=== PATIENT | female | born 1965 | race Caucasian/White ===

== ENCOUNTER 2023-09-03 09:36 | Inpatient (IN) | payer MEDICARE, MEDICAID ==
[~2023-09-03] VITALS: Ht 160 cm; Wt 50.0 kg
[2023-09-03] MEDS ORDERED: ACETAMINOPHEN TAB 650MG DOSE (2X325MG) PO PRN (10:05)
[2023-09-03 14:00] VITALS: BP 170/80; TEMP 96.6; O2SAT 97
[2023-09-03] MEDS ORDERED: ZOSY1SOL6 IV (15:38)
[2023-09-03 16:00] VITALS: BP 184/82; TEMP 96.5; O2SAT 98
[2023-09-03] MEDS ORDERED: TOPI-21 PO (16:14)
[2023-09-03] MEDS ORDERED: FAMO40TA3 PO (16:14)
[2023-09-03] MEDS ORDERED: DIVA500T9 PO (16:14)
[2023-09-03 16:32] LABS: BASO % 0.3 % (0.0-1.0); EOS # 0.2 10^3/uL (0.0-0.5); EOS % 2.5 % (0.0-3.0); HEMATOCRIT 30.8 % (36.0-47.0); HEMOGLOBIN 9.8 g/dl (12.0-15.5); LYMPH # 1.6 10^3/uL (1.5-5.0); LYMPH % 26.4 % (24.0-44.0); MEAN CORPUSCULAR HGB CONC 31.8 g/dl (32.0-36.5); MEAN CORPUSCULAR VOLUME 100.7 fl (80.0-96.0); MONO # 0.4 10^3/uL (0.0-0.8); NEUTROPHILS # 3.8 10^3/uL (1.5-8.5); NEUTROPHILS % 62.3 % (36.0-66.0); PLATELET COUNT, AUTOMATED 117 10^3/uL (150-450); RED BLOOD COUNT 3.06 10^6/uL (4.00-5.40)
[2023-09-03 16:37] LABS: ERYTHROCYTE SEDIMENTATION RATE 37 mm/hr (0-30)
[2023-09-03] MEDS ORDERED: amLODIPine 5 MG TAB PO ONE (16:55)
[2023-09-03] MEDS ORDERED: TOPI100T9 PO (16:57)
[2023-09-03] MEDS ORDERED: THIO25TA PO (16:57)
[2023-09-03] MEDS ORDERED: RISP-7 PO ×2 (16:57)
[2023-09-03 17:01] LABS: COMPLEMENT C3 111.8 MG/DL (90.0-170.0); COMPLEMENT C4 27.5 MG/DL (12-36); IMMUNOGLOBULIN A 183.1 MG/DL (40-350)
[2023-09-03 17:02] LABS: IMMUNOGLOBULIN G 1314 MG/DL (650-1600)
[2023-09-03 17:03] LABS: CPK CREATINE PHOSPHOKINASE < 15 U/L (34-145); IRON (FE) 207 UG/DL (50-170); LDH LACTATE DEHYDROGENASE 152 U/L (120-246)
[2023-09-03 17:04] LABS: ALBUMIN 2.3 G/DL (3.2-5.2); ALKALINE PHOSPHATASE 79 U/L (46-116); ALT/SGPT 9 U/L (7.0-40); AST/SGOT 12 U/L (<34); BILIRUBIN,TOTAL 0.4 MG/DL (0.3-1.2); BLOOD UREA NITROGEN 22 MG/DL (9-23); CALCIUM LEVEL 12.3 MG/DL (8.5-10.1); CARBON DIOXIDE LEVEL 23 MMOL/L (20-31); CHLORIDE LEVEL 116 MMOL/L (98-107); CK-MB VALUE MASS < 1.0 NG/ML (<3.6); CREATININE FOR GFR 1.82 MG/DL (0.55-1.30); GLOMERULAR FILTRATION RATE 30.4 (>51); GLUCOSE, FASTING 68 MG/DL (60-100); PERCENT SATURATION 77.2 % (13.2-45.0); POTASSIUM SERUM 4.4 MMOL/L (3.5-5.1); SODIUM LEVEL 144 MMOL/L (136-145); TOTAL IRON BINDING CAPACITY 268 UG/DL (250-425); TOTAL PROTEIN 6.1 G/DL (5.7-8.2)
[2023-09-03 17:05] LABS: FERRITIN 222.6 NG/ML (7.3-270.7)
[2023-09-03] MEDS ORDERED: B COCAP4 PO (17:05)
[2023-09-03] MEDS ORDERED: CETACRE3 TOP (17:05)
[2023-09-03] MEDS ORDERED: METH85CR11 TOP (17:05)
[2023-09-03 17:08] LABS: INR 1.06; PROTHROMBIN TIME 13.5 SECONDS (12.5-14.5)
[2023-09-03] MEDS ORDERED: CALTTAB2 PO (17:09)
[2023-09-03] MEDS ORDERED: SYST1SOL OU (17:09)
[2023-09-03] MEDS ORDERED: BIMA0.036 OU (17:09)
[2023-09-03] MEDS ORDERED: ACET-897 PO (17:09)
[2023-09-03 17:10] LABS: MONO SCRN NEGATIVE (NEGATIVE)
[2023-09-03] MEDS ORDERED: SENN-23 PO (17:11)
[2023-09-03] MEDS ORDERED: MIRA3350 PO (17:11)
[2023-09-03] MEDS ORDERED: OXYB5TAB11 PO (17:11)
[2023-09-03 17:12] LABS: D-DIMER QUANT 0.46 ug/mL (<0.5)
[2023-09-03] MEDS ORDERED: THIO50TA PO (17:14)
[2023-09-03 17:15] LABS: PROCALCITONIN 0.06 ng/ml
[2023-09-03] MEDS ORDERED: HOME MED LIST COMPLETE! XX SCH (17:20)
[2023-09-03 17:35] LABS: HIV 1&2 SCREEN NEGATIVE (NEGATIVE)
[2023-09-03] MEDS ORDERED: PILL CUTTER 1 EACH XX PRN (17:35)
[2023-09-03 17:42] VITALS: BP 188/82; TEMP 96.7; O2SAT 98
[2023-09-03] MEDS: PIPERACILLIN/TAZOBACTAM SOD 3.375 GM in D5W MINI-BAG PLUS 50 ML IV SCH ×2 (18:09→23:00)
[2023-09-03] MEDS ORDERED: **hydrALAZINE** 10 MG TAB PO ONE (19:00)
[2023-09-03 19:25] VITALS: BP 176/80; TEMP 96.7; O2SAT 99
[2023-09-03] MEDS: DIVALPROEX 500MG *ER* TAB PO SCH (20:32)
[2023-09-03 20:33] VITALS: BP_DIAS 80
[2023-09-03] MEDS: TOPIRAMATE (TopAMAX) 25 MG TAB PO SCH (20:33)
[2023-09-03] MEDS: risperiDONE 0.5 MG TAB PO SCH (20:33)
[2023-09-03] MEDS: ISOSORBIDE DIN (ISORDIL) 10MG TAB PO SCH (20:33)
[2023-09-03] MEDS: TOPIRAMATE (TopAMAX) 100 MG TAB PO SCH (20:33)
[2023-09-03] MEDS: oxyBUTYnin 5 MG TAB PO SCH (20:33)
[2023-09-03] MEDS: ARTIFICIAL TEARS DROPS 15ML BTL (VISINE DRY RELIEF) OU SCH (20:34)
[2023-09-03] MEDS: ANALGESIC BALM CRM 3OZ TOP SCH (20:34)
[2023-09-03] MEDS ORDERED: FAMOTIDINE 20 MG TAB PO SCH (21:00)
[2023-09-03 23:39] VITALS: BP 138/65; TEMP 97.5; O2SAT 97
[2023-09-04] VITALS (7 sets, daily range): BP systolic 98–147; BP diastolic 56–96; TEMP 95.6–97.6; O2SAT 98–99
[2023-09-04 04:10] LABS: BASO % 0.5 % (0.0-1.0); EOS # 0.2 10^3/uL (0.0-0.5); EOS % 2.6 % (0.0-3.0); HEMATOCRIT 27.5 % (36.0-47.0); HEMOGLOBIN 8.7 g/dl (12.0-15.5); LYMPH # 1.8 10^3/uL (1.5-5.0); LYMPH % 28.7 % (24.0-44.0); MEAN CORPUSCULAR HEMOGLOBIN 31.6 pg (27.0-33.0); MEAN CORPUSCULAR HGB CONC 31.6 g/dl (32.0-36.5); MONO # 0.4 10^3/uL (0.0-0.8); MONO % 6.2 % (2.0-8.0); NEUTROPHILS # 3.7 10^3/uL (1.5-8.5); PLATELET COUNT, AUTOMATED 116 10^3/uL (150-450); RED BLOOD COUNT 2.75 10^6/uL (4.00-5.40); WHITE BLOOD COUNT 6.1 10^3/uL (4.0-10.0)
[2023-09-04 04:26] LABS: CALCIUM LEVEL 12.1 MG/DL (8.5-10.1); CREATININE FOR GFR 1.98 MG/DL (0.55-1.30); GLOMERULAR FILTRATION RATE 27.6 (>51); POTASSIUM SERUM 3.8 MMOL/L (3.5-5.1)
[2023-09-04] MEDS: risperiDONE 0.5 MG TAB PO SCH ×4 (06:03→21:22)
[2023-09-04] MEDS: PIPERACILLIN/TAZOBACTAM SOD 3.375 GM in D5W MINI-BAG PLUS 50 ML IV SCH ×4 (06:06→23:58)
[2023-09-04] MEDS ORDERED: NS 1,000 ML IV SCH (08:00)
[2023-09-04 08:34] LABS: PTH INTACT 7.9 PG/ML (18.5-88.0)
[2023-09-04 08:37] LABS: FREE T3 2.1 PG/ML (2.3-4.2); FREE T4 0.77 NG/DL (0.89-1.76)
[2023-09-04 08:38] LABS: THYROID STIMULATING HORMONE 3.601 uIU/ML (0.55-4.78); TOTAL 25(OH) VITAMIN D 65.3 NG/ML (20.0-100.0)
[2023-09-04] MEDS: oxyBUTYnin 5 MG TAB PO SCH ×2 (09:00→21:22)
[2023-09-04] MEDS: TOPIRAMATE (TopAMAX) 100 MG TAB PO SCH ×2 (09:00→21:22)
[2023-09-04] MEDS: DIVALPROEX 500MG *ER* TAB PO SCH ×2 (09:00→21:22)
[2023-09-04] MEDS: FAMOTIDINE 20 MG TAB PO SCH ×2 (09:00→21:22)
[2023-09-04] MEDS: SENOKOT S TAB PO SCH (09:00)
[2023-09-04] MEDS: VITAMIN B COMPLEX/VIT C CAP PO SCH (09:00)
[2023-09-04] MEDS: ISOSORBIDE DIN (ISORDIL) 10MG TAB PO SCH (09:00)
[2023-09-04] MEDS: TOPIRAMATE (TopAMAX) 25 MG TAB PO SCH ×2 (09:00→21:22)
[2023-09-04] MEDS: CALCITONIN SALMON (MIACALCIN) 400INTERNATIONAL UNITS/2ML VIAL SQ SCH ×2 (09:00→21:00)
[2023-09-04] MEDS: ARTIFICIAL TEARS DROPS 15ML BTL (VISINE DRY RELIEF) OU SCH ×4 (09:53→21:23)
[2023-09-04] MEDS: ANALGESIC BALM CRM 3OZ TOP SCH ×3 (09:53→21:23)
[2023-09-04 10:52] LABS: FOLATE 10.1 NG/ML (>5.4)
[2023-09-04] MEDS ORDERED: PAMIDRONATE DISODIUM FOR IV ONE (13:00)
[2023-09-04] MEDS ORDERED: D5W IV ONE (13:00)
[2023-09-04] MEDS: LEVOTHYROXINE 25MCG TABLET (0.025MG) PO SCH (14:49)
[2023-09-04] MEDS ORDERED: MIDODRINE 5 MG TAB PO ONE (15:00)
[2023-09-04] MEDS ORDERED: NS 1,000 ML IV ONE (15:00)
[2023-09-04] MEDS: LEVOTHYROXINE 100MCG (0.1MG) 5ML SDV PF (SOLUTION FORM) IV SCH (16:22)
[2023-09-04] MEDS ORDERED: **NOTE PATIENT COMMENT** MISC XX SCH (16:40)
[2023-09-04] MEDS: NS 1,000 ML IV SCH ×2 (17:37→23:46)
[2023-09-05 00:06] VITALS: BP 135/69; TEMP 97.4; O2SAT 98
[2023-09-05 00:27] VITALS: BP 136/63; TEMP 97.3; O2SAT 98
[2023-09-05] MEDS: risperiDONE 0.5 MG TAB PO SCH ×3 (05:40→21:07)
[2023-09-05] MEDS: PIPERACILLIN/TAZOBACTAM SOD 3.375 GM in D5W MINI-BAG PLUS 50 ML IV SCH ×4 (05:40→23:17)
[2023-09-05] MEDS: LEVOTHYROXINE 25MCG TABLET (0.025MG) PO SCH (05:40)
[2023-09-05 06:00] VITALS: BP 144/67; TEMP 97; O2SAT 99
[2023-09-05 06:37] LABS: BASO % 0.2 % (0.0-1.0); EOS # 0.1 10^3/uL (0.0-0.5); EOS % 2.3 % (0.0-3.0); HEMATOCRIT 25.7 % (36.0-47.0); HEMOGLOBIN 8.5 g/dl (12.0-15.5); LYMPH # 1.3 10^3/uL (1.5-5.0); MEAN CORPUSCULAR HEMOGLOBIN 32.1 pg (27.0-33.0); MEAN CORPUSCULAR HGB CONC 33.1 g/dl (32.0-36.5); MONO # 0.5 10^3/uL (0.0-0.8); MONO % 8.5 % (2.0-8.0); NEUTROPHILS % 66.2 % (36.0-66.0); PLATELET COUNT, AUTOMATED 100 10^3/uL (150-450); RED BLOOD COUNT 2.65 10^6/uL (4.00-5.40)
[2023-09-05 07:06] LABS: CALCIUM LEVEL 9.2 MG/DL (8.5-10.1); CREATININE FOR GFR 1.61 MG/DL (0.55-1.30); POTASSIUM SERUM 3.4 MMOL/L (3.5-5.1)
[2023-09-05] MEDS: VITAMIN B COMPLEX/VIT C CAP PO SCH (09:24)
[2023-09-05] MEDS: TOPIRAMATE (TopAMAX) 25 MG TAB PO SCH ×2 (09:25→21:07)
[2023-09-05] MEDS: SENOKOT S TAB PO SCH (09:25)
[2023-09-05] MEDS: FAMOTIDINE 20 MG TAB PO SCH ×2 (09:25→21:07)
[2023-09-05] MEDS: TOPIRAMATE (TopAMAX) 100 MG TAB PO SCH ×2 (09:25→21:07)
[2023-09-05] MEDS: DIVALPROEX 500MG *ER* TAB PO SCH ×2 (09:25→21:07)
[2023-09-05] MEDS: oxyBUTYnin 5 MG TAB PO SCH ×2 (09:25→21:07)
[2023-09-05] MEDS: ARTIFICIAL TEARS DROPS 15ML BTL (VISINE DRY RELIEF) OU SCH ×4 (09:26→21:06)
[2023-09-05] MEDS: KCL 20MEQ in NS 1000ML 1,000 ML IV SCH (09:26)
[2023-09-05] MEDS: LEVOTHYROXINE 100MCG (0.1MG) 5ML SDV PF (SOLUTION FORM) IV SCH (09:26)
[2023-09-05] MEDS: ANALGESIC BALM CRM 3OZ TOP SCH ×3 (09:27→21:06)
[2023-09-05 12:13] LABS: INR 1.04; PROTHROMBIN TIME 13.3 SECONDS (12.5-14.5)
[2023-09-05] MEDS: CALCITONIN SALMON (MIACALCIN) 400INTERNATIONAL UNITS/2ML VIAL SQ SCH ×2 (14:13→21:57)
[2023-09-05 14:30] VITALS: BP 157/73; TEMP 96.6; O2SAT 100
[2023-09-05 17:09] LABS: BODY FLUID CULTURE Not indicated. (.); LEGIONELLA ANTIGEN URINE Negative (Negative); ORGANISM ID Not indicated. (.); SPECIMEN SOURCE Urine (.); URINE STREP PNEUMONIAE ANTIGEN Negative (Negative)
[2023-09-05 20:00] VITALS: BP 145/75; TEMP 96.8; O2SAT 100
[2023-09-06] MEDS: KCL 20MEQ in NS 1000ML 1,000 ML IV SCH ×3 (01:07→17:19)
[2023-09-06] MEDS: LEVOTHYROXINE 25MCG TABLET (0.025MG) PO SCH (05:36)
[2023-09-06] MEDS: PIPERACILLIN/TAZOBACTAM SOD 3.375 GM in D5W MINI-BAG PLUS 50 ML IV SCH ×4 (05:36→23:44)
[2023-09-06] MEDS: risperiDONE 0.5 MG TAB PO SCH ×3 (05:36→20:18)
[2023-09-06 06:00] VITALS: BP 143/67; TEMP 97.2; O2SAT 99
[2023-09-06 06:04] LABS: BASO % 0.2 % (0.0-1.0); EOS # 0.1 10^3/uL (0.0-0.5); EOS % 1.6 % (0.0-3.0); HEMATOCRIT 23.6 % (36.0-47.0); HEMOGLOBIN 7.8 g/dl (12.0-15.5); LYMPH # 0.9 10^3/uL (1.5-5.0); LYMPH % 18.9 % (24.0-44.0); MEAN CORPUSCULAR HEMOGLOBIN 32.2 pg (27.0-33.0); MEAN CORPUSCULAR HGB CONC 33.1 g/dl (32.0-36.5); MEAN CORPUSCULAR VOLUME 97.5 fl (80.0-96.0); MONO # 0.3 10^3/uL (0.0-0.8); MONO % 6.1 % (2.0-8.0); NEUTROPHILS # 3.5 10^3/uL (1.5-8.5); NEUTROPHILS % 71.8 % (36.0-66.0); RED BLOOD COUNT 2.42 10^6/uL (4.00-5.40); WHITE BLOOD COUNT 4.9 10^3/uL (4.0-10.0)
[2023-09-06 06:22] LABS: PLATELET COUNT, AUTOMATED 76 10^3/uL (150-450)
[2023-09-06 06:27] LABS: CALCIUM LEVEL 8.9 MG/DL (8.5-10.1); CREATININE FOR GFR 1.4 MG/DL (0.55-1.30); GLOMERULAR FILTRATION RATE 41.1 (>51); POTASSIUM SERUM 3.7 MMOL/L (3.5-5.1)
[2023-09-06] MEDS ORDERED: DARBEPOETIN 100MCG/0.5ML *NON-DIALYSIS* SYRINGE SC SCH (09:00)
[2023-09-06] MEDS: ARTIFICIAL TEARS DROPS 15ML BTL (VISINE DRY RELIEF) OU SCH ×5 (09:00→20:19)
[2023-09-06] MEDS: FAMOTIDINE 20 MG TAB PO SCH ×2 (09:33→20:19)
[2023-09-06] MEDS: TOPIRAMATE (TopAMAX) 25 MG TAB PO SCH ×2 (09:33→20:21)
[2023-09-06] MEDS: oxyBUTYnin 5 MG TAB PO SCH ×2 (09:33→20:19)
[2023-09-06] MEDS: VITAMIN B COMPLEX/VIT C CAP PO SCH (09:33)
[2023-09-06] MEDS: DIVALPROEX 500MG *ER* TAB PO SCH ×2 (09:33→20:18)
[2023-09-06] MEDS: TOPIRAMATE (TopAMAX) 100 MG TAB PO SCH ×2 (09:34→20:19)
[2023-09-06] MEDS: ANALGESIC BALM CRM 3OZ TOP SCH ×3 (09:36→20:20)
[2023-09-06 10:00] VITALS: BP 140/72; TEMP 92.7; O2SAT 100
[2023-09-06 11:38] VITALS: BP 124/58; TEMP 93.2; O2SAT 99
[2023-09-06 16:00] VITALS: BP 113/58; TEMP 98.8; O2SAT 98
[2023-09-06 19:50] VITALS: BP 122/61; TEMP 98.4; O2SAT 99
[2023-09-06 23:38] VITALS: BP 142/63; TEMP 97.9; O2SAT 99
[2023-09-07 03:56] VITALS: BP 145/67; TEMP 98.2; O2SAT 99
[2023-09-07] MEDS: PIPERACILLIN/TAZOBACTAM SOD 3.375 GM in D5W MINI-BAG PLUS 50 ML IV SCH ×3 (06:06→17:54)
[2023-09-07] MEDS: LEVOTHYROXINE 100MCG (0.1MG) 5ML SDV PF (SOLUTION FORM) IV SCH (06:06)
[2023-09-07] MEDS: risperiDONE 0.5 MG TAB PO SCH ×3 (06:06→21:51)
[2023-09-07] MEDS: KCL 20MEQ in NS 1000ML 1,000 ML IV SCH (06:07)
[2023-09-07 06:10] LABS: BASO % 0.2 % (0.0-1.0); EOS % 0.7 % (0.0-3.0); HEMOGLOBIN 8.4 g/dl (12.0-15.5); LYMPH # 0.5 10^3/uL (1.5-5.0); LYMPH % 9.4 % (24.0-44.0); MEAN CORPUSCULAR HEMOGLOBIN 31.9 pg (27.0-33.0); MEAN CORPUSCULAR HGB CONC 32.3 g/dl (32.0-36.5); MEAN CORPUSCULAR VOLUME 98.9 fl (80.0-96.0); MONO # 0.4 10^3/uL (0.0-0.8); MONO % 6.3 % (2.0-8.0); NEUTROPHILS # 4.5 10^3/uL (1.5-8.5); NEUTROPHILS % 80.9 % (36.0-66.0); RED BLOOD COUNT 2.63 10^6/uL (4.00-5.40); WHITE BLOOD COUNT 5.6 10^3/uL (4.0-10.0)
[2023-09-07 06:11] LABS: PLATELET COUNT, AUTOMATED 83 10^3/uL (150-450)
[2023-09-07 06:28] LABS: CALCIUM LEVEL 8.5 MG/DL (8.5-10.1); CREATININE FOR GFR 1.48 MG/DL (0.55-1.30); GLOMERULAR FILTRATION RATE 38.6 (>51); POTASSIUM SERUM 3.5 MMOL/L (3.5-5.1)
[2023-09-07 07:46] VITALS: BP 139/65; TEMP 98.2; O2SAT 98
[2023-09-07] MEDS: DIVALPROEX 500MG *ER* TAB PO SCH ×2 (08:21→21:45)
[2023-09-07] MEDS: VITAMIN B COMPLEX/VIT C CAP PO SCH (08:21)
[2023-09-07] MEDS: TOPIRAMATE (TopAMAX) 25 MG TAB PO SCH ×2 (08:21→21:50)
[2023-09-07] MEDS: FAMOTIDINE 20 MG TAB PO SCH ×2 (08:22→21:50)
[2023-09-07] MEDS: ANALGESIC BALM CRM 3OZ TOP SCH ×3 (08:22→21:52)
[2023-09-07] MEDS: ARTIFICIAL TEARS DROPS 15ML BTL (VISINE DRY RELIEF) OU SCH ×4 (08:22→21:52)
[2023-09-07] MEDS: TOPIRAMATE (TopAMAX) 100 MG TAB PO SCH ×2 (08:22→21:51)
[2023-09-07] MEDS: oxyBUTYnin 5 MG TAB PO SCH ×2 (08:22→21:51)
[2023-09-07] MEDS: KCL 20MEQ IN 0.45NS 1000ML 1,000 ML IV SCH (12:56)
[2023-09-07 13:35] VITALS: BP 147/68; TEMP 98.2; O2SAT 99
[2023-09-07 16:00] VITALS: BP 139/65; TEMP 97.7; O2SAT 98
[2023-09-07 19:28] VITALS: BP 129/63; TEMP 97.6; O2SAT 100
[2023-09-07 23:17] VITALS: BP 147/66; TEMP 98.4; O2SAT 99
[2023-09-08] VITALS (10 sets, daily range): BP systolic 107–178; BP diastolic 58–79; TEMP 95.9–97.8; O2SAT 97–99
[2023-09-08] MEDS: KCL 20MEQ IN 0.45NS 1000ML 1,000 ML IV SCH ×2 (00:32→14:07)
[2023-09-08] MEDS: PIPERACILLIN/TAZOBACTAM SOD 3.375 GM in D5W MINI-BAG PLUS 50 ML IV SCH ×5 (00:32→23:39)
[2023-09-08 04:21] LABS: BASO % 0.2 % (0.0-1.0); EOS # 0.1 10^3/uL (0.0-0.5); EOS % 1.7 % (0.0-3.0); HEMATOCRIT 24.5 % (36.0-47.0); HEMOGLOBIN 7.7 g/dl (12.0-15.5); LYMPH % 21.8 % (24.0-44.0); MEAN CORPUSCULAR HEMOGLOBIN 31.4 pg (27.0-33.0); MEAN CORPUSCULAR HGB CONC 31.4 g/dl (32.0-36.5); MONO # 0.5 10^3/uL (0.0-0.8); MONO % 10.5 % (2.0-8.0); NEUTROPHILS # 2.9 10^3/uL (1.5-8.5); NEUTROPHILS % 63.6 % (36.0-66.0); RED BLOOD COUNT 2.45 10^6/uL (4.00-5.40); WHITE BLOOD COUNT 4.6 10^3/uL (4.0-10.0)
[2023-09-08 04:31] LABS: PLATELET COUNT, AUTOMATED 76 10^3/uL (150-450)
[2023-09-08 04:50] LABS: CALCIUM LEVEL 8.1 MG/DL (8.5-10.1); CREATININE FOR GFR 1.4 MG/DL (0.55-1.30); GLOMERULAR FILTRATION RATE 41.1 (>51); POTASSIUM SERUM 3.4 MMOL/L (3.5-5.1)
[2023-09-08] MEDS: LEVOTHYROXINE 100MCG (0.1MG) 5ML SDV PF (SOLUTION FORM) IV SCH (05:47)
[2023-09-08] MEDS: risperiDONE 0.5 MG TAB PO SCH ×3 (06:34→21:15)
[2023-09-08] MEDS: TOPIRAMATE (TopAMAX) 100 MG TAB PO SCH ×2 (09:21→21:15)
[2023-09-08] MEDS: TOPIRAMATE (TopAMAX) 25 MG TAB PO SCH ×2 (09:22→21:14)
[2023-09-08] MEDS: oxyBUTYnin 5 MG TAB PO SCH ×2 (09:22→21:14)
[2023-09-08] MEDS: DIVALPROEX 500MG *ER* TAB PO SCH ×2 (09:22→21:15)
[2023-09-08] MEDS: FAMOTIDINE 20 MG TAB PO SCH ×2 (09:22→21:15)
[2023-09-08] MEDS: VITAMIN B COMPLEX/VIT C CAP PO SCH (09:23)
[2023-09-08] MEDS: ANALGESIC BALM CRM 3OZ TOP SCH ×3 (09:24→21:22)
[2023-09-08] MEDS: ARTIFICIAL TEARS DROPS 15ML BTL (VISINE DRY RELIEF) OU SCH ×4 (09:24→21:22)
[2023-09-08 12:09] LABS: FREE LAMBDA LIGHT CHAINS SERUM 35.9 mg/L (5.7-26.3); KAPPA/LAMBDA RATIO SERUM 1.92 (0.26-1.65); VITAMIN D 1,25 DIHYDROXY 34.9 pg/mL (24.8-81.5)
[2023-09-08 12:48] LABS: FREE T4 0.96 NG/DL (0.89-1.76); THYROID STIMULATING HORMONE 2.787 uIU/ML (0.55-4.78)
[2023-09-08 12:50] LABS: FREE T3 2.1 PG/ML (2.3-4.2)
[2023-09-09 03:21] VITALS: BP 112/62; TEMP 97.4; O2SAT 98
[2023-09-09] MEDS: PIPERACILLIN/TAZOBACTAM SOD 3.375 GM in D5W MINI-BAG PLUS 50 ML IV SCH ×2 (05:39→11:31)
[2023-09-09] MEDS: KCL 20MEQ IN 0.45NS 1000ML 1,000 ML IV SCH (05:39)
[2023-09-09] MEDS: LEVOTHYROXINE 100MCG (0.1MG) 5ML SDV PF (SOLUTION FORM) IV SCH (05:39)
[2023-09-09 05:51] LABS: BASO % 0.2 % (0.0-1.0); EOS # 0.1 10^3/uL (0.0-0.5); EOS % 2.2 % (0.0-3.0); HEMATOCRIT 27.5 % (36.0-47.0); LYMPH # 1.2 10^3/uL (1.5-5.0); LYMPH % 29.7 % (24.0-44.0); MEAN CORPUSCULAR HEMOGLOBIN 31.5 pg (27.0-33.0); MEAN CORPUSCULAR HGB CONC 32.7 g/dl (32.0-36.5); MEAN CORPUSCULAR VOLUME 96.2 fl (80.0-96.0); MONO # 0.5 10^3/uL (0.0-0.8); MONO % 13.1 % (2.0-8.0); NEUTROPHILS # 2.2 10^3/uL (1.5-8.5); NEUTROPHILS % 53.3 % (36.0-66.0); RED BLOOD COUNT 2.86 10^6/uL (4.00-5.40); WHITE BLOOD COUNT 4.1 10^3/uL (4.0-10.0)
[2023-09-09 05:53] LABS: PLATELET COUNT, AUTOMATED 63 10^3/uL (150-450)
[2023-09-09 06:19] LABS: CALCIUM LEVEL 7.5 MG/DL (8.5-10.1); CREATININE FOR GFR 1.28 MG/DL (0.55-1.30); GLOMERULAR FILTRATION RATE 45.6 (>51); POTASSIUM SERUM 3.6 MMOL/L (3.5-5.1)
[2023-09-09] MEDS: risperiDONE 0.5 MG TAB PO SCH ×2 (06:41→11:30)
[2023-09-09 08:00] VITALS: BP 116/58; TEMP 97.2; O2SAT 100
[2023-09-09] MEDS: VITAMIN B COMPLEX/VIT C CAP PO SCH (09:57)
[2023-09-09] MEDS: TOPIRAMATE (TopAMAX) 100 MG TAB PO SCH (09:57)
[2023-09-09] MEDS: oxyBUTYnin 5 MG TAB PO SCH (09:57)
[2023-09-09] MEDS: TOPIRAMATE (TopAMAX) 25 MG TAB PO SCH (09:57)
[2023-09-09] MEDS: DIVALPROEX 500MG *ER* TAB PO SCH (09:57)
[2023-09-09] MEDS: FAMOTIDINE 20 MG TAB PO SCH (09:58)
[2023-09-09] MEDS: ANALGESIC BALM CRM 3OZ TOP SCH (10:00)
[2023-09-09] MEDS: ARTIFICIAL TEARS DROPS 15ML BTL (VISINE DRY RELIEF) OU SCH (10:01)
[2023-09-09] MEDS ORDERED: AMOX875T2 PO (10:37)
[2023-09-09] MEDS ORDERED: SYNT50TA PO (10:55)
[2023-09-09 12:00] VITALS: BP 161/71; O2SAT 100
[2023-09-11 14:09] LABS: ASPERGILLUS GALACTOMANNAN AG 0.11 Index (0.00-0.49); CRYPTOCOCCUS ANTIBODY SERUM Negative (Neg:<1:2); CRYPTOCOCCUS ANTIGEN SER Negative (Negative); M003-IGE ASPERGILLUS fumigatus <0.10 kU/L (Class 0)
== END 2023-09-09 14:17 | disposition home or self-care (01) | DRG 180 ==
LOC: M ICU 13:15 → M PCU 16:49 → M MSPAV 09-05 00:25 → M PCU 09-06 09:53
PROVIDERS: ADMIT General Practice; ATTEND General Practice
PROC: 30233N1 Transfusion of Nonautologous Red Blood Cells into Peripheral Vein, Percutaneous Approach (ICD-10-PCS; principal; 2023-09-08)
PROC: B246ZZZ Ultrasonography of Right and Left Heart (ICD-10-PCS; 2023-09-08)
DX: C34.11 Malignant neoplasm of upper lobe, right bronchus or lung (principal); G93.41 Metabolic encephalopathy; N17.9 Acute kidney failure, unspecified; E87.0 Hyperosmolality and hypernatremia; F79 Unspecified intellectual disabilities; R91.8 Other nonspecific abnormal finding of lung field; G40.909 Epilepsy, unspecified, not intractable, without status epilepticus; M81.0 Age-related osteoporosis without current pathological fracture; E83.52 Hypercalcemia; E78.00 Pure hypercholesterolemia, unspecified; N18.9 Chronic kidney disease, unspecified; K21.9 Gastro-esophageal reflux disease without esophagitis; E86.0 Dehydration; I12.9 Hypertensive chronic kidney disease with stage 1 through stage 4 chronic kidney disease, or unspecified chronic kidney disease; D63.1 Anemia in chronic kidney disease; E03.9 Hypothyroidism, unspecified; R45.1 Restlessness and agitation; F42.9 Obsessive-compulsive disorder, unspecified; R68.0 Hypothermia, not associated with low environmental temperature; D53.9 Nutritional anemia, unspecified; E87.6 Hypokalemia; R00.1 Bradycardia, unspecified; D69.6 Thrombocytopenia, unspecified; R13.10 Dysphagia, unspecified; I16.0 Hypertensive urgency; N14.19 Nephropathy induced by other drugs, medicaments and biological substances; Z79.899 Other long term (current) drug therapy; Z88.1 Allergy status to other antibiotic agents; Z88.8 Allergy status to other drugs, medicaments and biological substances; Z20.822 Contact with and (suspected) exposure to COVID-19; Z79.890 Hormone replacement therapy